=== PATIENT | female | born 2000 | race Caucasian/White ===

== ENCOUNTER 2020-07-22 18:32 | Emergency (ER) | payer OTHER ==
--- NOTE | 2020-07-22 18:55 | ED Physician Documentation ---
PD HPI FEVER - Stated complaint Stated Complaint: C+ SYMPTOMS - History obtained from History obtained from: Patient - Additional information Additional information: The whole family is sick, she became ill today with low-grade fever, body aches, rhinorrhea. No shortness of breath. She has a history of mild well-controlled asthma. Review of Systems Constitutional: reports: Fever, Chills, Myalgias, Fatigue Nose: reports: Rhinorrhea / runny nose Respiratory: denies: Dyspnea, Cough PD PAST MEDICAL HISTORY - Present Medications Home Medications: Ambulatory Orders Medication Instructions Recorded Confirmed No Known Home Medications 07/22/20 07/22/20 - Allergies Allergies/Adverse Reactions: Allergies Allergy/AdvReac Type Severity Reaction Status Date / Time No Known Drug Allergies Allergy Verified 07/22/20 19:15 PD ED PE NORMAL - Vitals Vital signs reviewed: Yes - General General: Alert and oriented X 3, No acute distress - HEENT HEENT: PERRL, EOMI - Neck Neck: Supple, no meningeal sign, No bony TTP - Cardiac Cardiac: RRR, No murmur - Respiratory Respiratory: No respiratory distress, Clear bilaterally - Abdomen Abdomen: Non tender - Derm Derm: No rash - Neuro Neuro: Alert and oriented X 3, Normal speech Results - Vitals Vitals: Vital Signs - 24 hr 07/22/20 07/22/20 19:00 21:01 Temperature 37.4 C 36.9 C Heart Rate 72 86 Respiratory 17 16 Rate Blood Pressure 140/91 H 134/83 H O2 Saturation 100 100 Oxygen O2 Source Room air PD MEDICAL DECISION MAKING - ED course ED course: 20-year-old woman with viral syndrome. Covid test was sent but her son had a rapid test done which was positive for rhinovirus so presume that is the causative agent for her as well. Departure - Departure Disposition: Home, Self Care Clinical Impression: Viral syndrome Condition: Good Record reviewed to determine appropriate education?: Yes Instructions: ED Viral Syndrome Comments: Tylenol and/or ibuprofen as needed for aches and pains. Return if worse. You have a Covid test pending. You need to self quarantine until the result is done and negative. Do not leave your house. Do not get near anybody. The results should be done in 48 to 72 hours. We will call with a positive result, the fastest way to get a negative result for confirmation though is to go to the hospital website at [email or web address], click on the my [facility] tab and sign up for the patient portal. If any friends or family get sick and would like to have a Covid test done, but do not have signs or symptoms that would necessitate being hospitalized, we encourage testing through our coronavirus swabbing station, call [phone] to schedule an appointment. Discharge Date/Time: 07/22/20 21:15
[2020-07-22 21:01] VITALS: BP 134/83
== END 2020-07-22 21:15 | disposition home or self-care (01) ==
LOC: ED 18:32
DX: B34.9 Viral infection, unspecified (principal); Z20.822 Contact with and (suspected) exposure to COVID-19
CPT/HCPCS: 99282; 99283

== ENCOUNTER 2020-08-22 15:28 | Outpatient (CLI) | payer OTHER ==
[2020-08-22 18:15] LABS: THYROID STIMULATING HORMONE 1.23 uIU/mL (0.34-5.60)
== END 2020-08-22 15:29 | disposition home or self-care (01) ==
LOC: LAB.N 15:28
PROVIDERS: ATTEND Physician Assistant
DX: R53.83 Other fatigue (principal)
CPT/HCPCS: 36415; 84443

== ENCOUNTER 2021-09-25 02:32 | Emergency (ER) | payer OTHER ==
--- NOTE | 2021-09-25 02:36 | ED Physician Documentation ---
History of Present Illness - Stated complaint Stated Complaint: SINUS PRESSURE, N/V - History obtained from History obtained from: Patient - History of Present Illness Timing: How many days ago (4) Improved by: nothing Worsened by: no exacerbating factors - Additonal information Additional information: c/o 4 days of bilateral maxillary sinus pressure, nausea without vomiting, generalize myalgias, sore throat, diarrhea. She is not COVID vaccinated. Patient's Tmax was 99.5. She had a right inguinal lymph node biopsy 09/18. Her son is also currently registered ED patient for fever. Review of Systems Constitutional: reports: Fever, Myalgias, Fatigue Ears: denies: Ear pain Nose: reports: Sinus pressure / pain. denies: Rhinorrhea / runny nose, Congestion Throat: reports: Sore throat Cardiac: denies: Chest pain / pressure Respiratory: denies: Dyspnea, Cough GI: reports: Nausea. denies: Abdominal Pain, Vomiting : denies: Dysuria, Frequency, Now EGA Skin: denies: Rash PD PAST MEDICAL HISTORY - Past Medical History Respiratory: Asthma Musculoskeletal: Fibromyalgia - Past Surgical History Past Surgical History: No - Present Medications Home Medications: Ambulatory Orders Medication Instructions Recorded Confirmed No Known Home Medications 07/22/20 09/25/21 - Allergies Allergies/Adverse Reactions: Allergies Allergy/AdvReac Type Severity Reaction Status Date / Time No Known Drug Allergies Allergy Verified 09/25/21 02:42 - Social History Does the pt smoke?: No Smoking Status: Never smoker Does the pt drink ETOH?: Yes Does the pt have substance abuse?: No - Immunizations Immunizations are current?: No - POLST Patient has POLST: No PD ED PE NORMAL - Vitals Vital signs reviewed: Yes - General General: Alert and oriented X 3, No acute distress, Well developed/nourished - HEENT HEENT: Moist mucous membranes, Pharynx benign - Cardiac Cardiac: RRR, No murmur - Respiratory Respiratory: No respiratory distress, Clear bilaterally - Abdomen Abdomen: Soft, Non tender - Derm Derm: Normal color, Warm and dry Results - Vitals Vitals: Oxygen O2 Source Room air PD MEDICAL DECISION MAKING - ED course Complexity details: considered differential, d/w patient ED course: at this time, patient is afebrile and in NAD. no concerning findings on exam: lungs are CTA, she appears well hydrated, posterior o/p appears normal. We discussed possible testing, specifically respiratory PCR panel, which she declines. We discussed that a positive result would be unlikely to change management coordinator (if COVID positive, would not qualify for Paxlovid (no risk factors for progression to severe disease), Tamiflu, and other viruses would not have a specific anti-viral medication to offer). She is here with her son who has similar symptoms, as well as who has same symptoms and has tests for COVID and influenza pending (performed at [facility] earlier today). Departure - Departure Disposition: 01 Home, Self Care Clinical Impression: Viral syndrome Condition: Good Instructions: ED Viral Syndrome Follow-Up: Danilo Salguero ARNP [Primary Care Provider] - Comments: With two other household contacts having similar symptoms to yours, the most likely explanation would be a viral infection (many viral infections are quite contagious). As we discussed, a nasal swab could be performed tonight, although at this time, any positive result would be unlikely to change management coordinator. While there is an anti-viral medication used for some patients with COVID, you do not have risk factors for progression to severe disease (which is one of the criteria that needs to be met in order for this medication to be prescribed). Discharge Date/Time: 09/25/21 03:45
[2021-09-25 02:42] VITALS: BP 140/85
== END 2021-09-25 03:45 | disposition home or self-care (01) ==
LOC: ED 02:32
DX: B34.9 Viral infection, unspecified (principal)
CPT/HCPCS: 99281; 99282